=== PATIENT | female | born 1955 | race Caucasian/White ===

== ENCOUNTER → 2024-08-29 10:42 | Outpatient (REF) | payer MEDICARE, OTHER, SELFPAY | LOC: WDC 10:42 | PROVIDERS: ATTENDING PHYSICIAN Obstetrics & Gynecology; FAMILY PHYSICIAN Family Medicine | DX: Z12.31 Encounter for screening mammogram for malignant neoplasm of breast (principal) | CPT/HCPCS: 77063; 77067 ==

== ENCOUNTER 2024-10-03 06:17 | Day surgery (SDC) | payer MEDICARE, OTHER, SELFPAY | END 2024-10-03 10:26 | disposition home or self-care (01) | LOC: GI 06:17 | PROVIDERS: ATTENDING PHYSICIAN Internal Medicine | DX: K51.20 Ulcerative (chronic) proctitis without complications (principal); K51.30 Ulcerative (chronic) rectosigmoiditis without complications; K62.89 Other specified diseases of anus and rectum; K63.5 Polyp of colon | CPT/HCPCS: 45385; 45381; 45380; 88305 ==

== ENCOUNTER 2024-12-30 06:17 | Day surgery (SDC) | payer MEDICARE, OTHER, SELFPAY | END 2024-12-30 11:17 | disposition home or self-care (01) | LOC: GI 06:17 | PROVIDERS: ATTENDING PHYSICIAN Internal Medicine | DX: K51.30 Ulcerative (chronic) rectosigmoiditis without complications (principal); K57.30 Diverticulosis of large intestine without perforation or abscess without bleeding | CPT/HCPCS: 45331; 88305 ==

== ENCOUNTER 2025-01-09 23:13 | Emergency (ER) | payer MEDICARE, OTHER, SELFPAY ==
[2025-01-09 23:19] VITALS: BP 156/97
[2025-01-10 00:08] VITALS: BP 147/91
[2025-01-10 00:42] VITALS: BP 147/91; BMI 24.6
--- NOTE | 2025-01-10 01:21 | ED.GENMED ---
History of Present Illness
General
Chief Complaint: Eye Problems
Source: patient
Time Seen by Provider: 01/10/25 00:49
History of Present Illness
History of Present Illness:
Patient has been having 3 to 4 days of floaters in her left eye. She feels that she has blurring her of her vision in the left eye. Patient has retinal issues in that eye. She used to see a retinal specialist at [facility]. She
states that her retinal specialist has left the practice and has an appointment for next month with a new retinal specialist. Patient denies fever, chills, nausea or vomiting. Reports no headache.
Past History
Past History
ED Past Medical History: Other (Breast cancer, GERD)
ED Past Surgical History: Other
Social History
Tobacco: Non-smoker
Alcohol: None
Drug: None
Personal:
Living: with family
Employment: Employed
Review of Systems
Review of Systems
Allergies reviewed?: Yes
All Other Systems: ROS reviewed and negative except as documented in HPI and ROS
Constitutional: Reports no symptoms
EENT: Reports other (Floaters)
Respiratory: Reports no symptoms
Cardiac: Reports no symptoms
ABD/GI: Reports no symptoms
: Reports no symptoms
Musculoskeletal: Reports no symptoms
Skin: Reports no symptoms
Neurological: Reports no symptoms
Endocrine: Reports no symptoms
Hematologic/Lymphatic: Reports no symptoms
Psychiatric: Reports anxiety
Phy Exam
General Physical Exam
General Presentation: well appearing and no apparent distress
General Skin: warm and dry
General Habitus: normal
General Mental: alert
General Hydration: appears well hydrated
ENT Exam
ENT Exam: EOMI, pharynx normal, neck supple and normocephalic
Eye Exam
Eye Exam: PERRL and EOMI
Eye Exam General: PERRL: bilateral and EOM intact: bilateral
Pupil Exam: Bilateral: round and reactive
Conjunctival Changes: bilateral: none
Cornea Exam: abrasion: Left
Retinal Exam: normal vascular pulsation: Left
Type of Exam: simple and fluorescein
Pressure: 16 (Average of 5 different tests all were 16)
Cardiovascular Exam
Cardiovascular Exam: regular rate/rhythm, no edema, no murmur and normal peripheral pulses
Pulmonary Exam
Pulmonary Exam: lungs clear, no respiratory distress, no rales, no crackles, no rhonchi, no stridor, no wheezing and no cough
Gastrointestinal Exam
Gastrointestinal Exam: normal bowel sounds, non tender, soft, no organomegaly, no pulsatile mass and non distended
Neurological Exam
Neurological Exam: alert, oriented x3, no motor deficits and speech normal
Musculoskeletal Exam
Musculoskeletal Exam: full ROM and no edema
Skin Exam
Skin Exam: normal color, warm/dry, no rash and no petechia
Psychiatric Exam
Psychiatric Exam: normal mood/affect
Course
Orders/Labs/Results
Orders:
Orders
01/10/25 01:23
Visual Acuity- Treatment ONCE
Gentamicin [Genoptic 0.3% Eye Drops] See Dose Instructions OPHTH NOW STA
Tetanus/Diphth/Acelpertussis [Adacel] 0.5 ml IM .ONCE ONE
Vital Signs
Initial and Last Documented VS:
Initial Vital Signs
Temp Pulse Resp BP Pulse Ox
98.0 F 95 16 156/97 98
01/09/25 23:19 01/09/25 23:19 01/09/25 23:19 01/09/25 23:19 01/09/25 23:19
Last Documented Vital Signs
Temp Pulse Resp BP Pulse Ox
98.0 F 97 18 147/91 97
01/09/25 23:19 01/10/25 00:42 01/10/25 00:42 01/10/25 00:42 01/10/25 00:42
*Critical Care Note
Total Time (30-74mins, 75-104mins- exclusive of procedures): Not Applicable
Update Note
Update Note:
Patient has a small corneal abrasion.
Will receive antibiotics and a tetanus shot
Will be following up with her eye doctor. She will call her retina specialist and see if she can push up the appointment.
POCUS performed by myself shows no obvious retinal detachment.
ED Attending Note
-
Portions of this chart may have been created with voice recognition software.� Occasional wrong word or��sound alike� substitutions may have occurred due to the inherent limitations of voice recognition software.
Discharge Plan
Departure
Patient Disposition: Home (Routine Discharge)
Date of Disposition: 01/10/25
Time of Disposition: 01:36
Patient with high blood pressure during this ER visit?: Yes
Discharge Problem:
Floaters, Abrasion, corneal
Instructions: Corneal Abrasion (DC), How to Use Eye Drops, Tdap vaccine, BLOOD PRESSURE
Prescriptions:
No Action
prednisone 50 MG tablet
50 mg PO DAILY Qty: 5 0RF
hydrocodone-acetaminophen [Vicodin] 1 EACH tablet
1 ea PO Q6HPRN PRN (Reason: pain) Qty: 20 0RF
Referrals:
Fernando Feliz MD [Active] - As needed
Eva Holley DO [Family Provider] -
Activity Restrictions/Additional Instructions:
Please take 1 drop of the ophthalmologic antibiotic every 4-5 hours to your left eye while awake
Thank You for choosing [facility].
It was a pleasure meeting you and taking part in your care. We hope for your continued healing and wellness.
Please read discharge instructions in their entirety. However, they are for general education and may not describe your exact diagnosis at discharge. Information on your ER visit and medical conditions were discussed with you along with appropriate
follow up information...
If indicated, please take your medications as instructed and indicated on discharge paperwork.
Please schedule a follow up appointment as directed. Call to schedule an appointment
Please return to the emergency department with ANY change in, persisting, or worsening of symptoms. If any of your symptoms do not improve, or persist, or become more severe within 6-12 hours, please return to the emergency department for further
care.
Please return to the emergency department if you develop a headache, neck pain/stiffness, fever greater than 100.4F, chest pain, shortness of breath, persistent nausea, vomiting, slurred speech, difficulty walking, numbness/tingling, weakness, signs
of infection or any other symptoms that are worrisome to you.
If you have any questions or concerns please do not hesitate to call the Hospital at or E-mail me directly at [email or web address]
Interventions
Interventions:
*Risk Screen - Suicide Last Done: 01/09/25 23:22
*Neglect/Abuse Screening Last Done: 01/09/25 23:22
*ED- Fall Risk Assessment Last Done: 01/09/25 23:22
*ED COVID-19 Vaccine History Last Done: 01/09/25 23:22
Discharge Date and Time
Print Language: [place]
[2025-01-10] MEDS: ADACEL 0.5 ML IM (01:57)
[2025-01-10] MEDS: GENOPTIC 0.3% EYE DROPS 1 DROP OPHTH (01:59)
== END 2025-01-10 02:10 | disposition home or self-care (01) ==
LOC: EMR 23:13
PROVIDERS: EMERGENCY PHYSICIAN Student in an Organized Health Care Education/Training Program; FAMILY PHYSICIAN Family Medicine
DX: S05.02XA Injury of conjunctiva and corneal abrasion without foreign body, left eye, initial encounter (principal); X58.XXXA Exposure to other specified factors, initial encounter; H43.392 Other vitreous opacities, left eye; Z85.3 Personal history of malignant neoplasm of breast; Z23 Encounter for immunization
CPT/HCPCS: 90471; 99283; 90715